=== PATIENT | male | born 1980 | race African-American/Black ===

== ENCOUNTER 2018-05-08 18:26 | Emergency (ER) | payer MEDICAID ==
[~2018-05-08] VITALS: Ht 167.6 cm; Wt 77.0 kg
[~2018-05-08 18:26] MED LIST: ERY-TAB333 MG OR; NAPROSYN500 MG PO; SEPTRA DS1 TAB OR
[2018-05-08 19:04] VITALS: BP 119/83
== END 2018-05-08 19:04 | disposition home or self-care (01) ==
LOC: ED 18:26
DX: S01.81XA Laceration without foreign body of other part of head, initial encounter (principal); W50.0XXA Accidental hit or strike by another person, initial encounter; Y93.67 Activity, basketball; Y92.830 Public park as the place of occurrence of the external cause

== ENCOUNTER 2020-09-02 09:02 | Emergency (ER) | payer OTHER ==
[~2020-09-02] VITALS: Ht 167.6 cm; Wt 86.0 kg
[2020-09-02] MEDS ORDERED: ERYTHROMYCIN O3.5 GM OS (09:59)
[2020-09-02 10:13] VITALS: BP 128/72
== END 2020-09-02 10:34 | disposition home or self-care (01) ==
LOC: ED 09:02
DX: H01.004 Unspecified blepharitis left upper eyelid (principal)

== ENCOUNTER 2020-09-15 | Emergency (ER) | payer MEDICAID ==
[~2020-09-15] MED LIST changes: +ERYTHROMYCIN O3.5 GM OS
[2020-09-15] MEDS ORDERED: LORTAB 1010 MG PO (12:21)
[2020-09-15] MEDS ORDERED: KEFLEX500 M1 PO (12:21)
== END 2020-09-15 12:46 | disposition home or self-care (01) | DRG 605 ==
PROC: 0HQNXZZ Repair Left Foot Skin, External Approach (ICD-10-PCS; principal; 2020-09-15)
DX: S91.212A Laceration without foreign body of left great toe with damage to nail, initial encounter (principal); L08.9 Local infection of the skin and subcutaneous tissue, unspecified; W20.8XXA Other cause of strike by thrown, projected or falling object, initial encounter; Y93.89 Activity, other specified; Y92.89 Other specified places as the place of occurrence of the external cause; Y99.0 Civilian activity done for income or pay

== ENCOUNTER 2021-01-09 21:44 | Emergency (ER) | payer OTHER ==
[~2021-01-09] VITALS: Ht 167.6 cm; Wt 82.0 kg
[~2021-01-09 21:44] MED LIST changes: +KEFLEX500 M1 PO; +LORTAB 1010 MG PO
[2021-01-09 22:25] LABS: HEMATOCRIT 38.8 % (39.0-50.0); HEMOGLOBIN 11.4 g/dl (14.0-18.0); IMMATURE GRANULOCYTES 0.4 % (0.0-5.0); MEAN CELL VOLUME 68.2 fL CALC (80.0-100.0); MEAN CORPUSCULAR HGB CONC 29.4 g/dL CAL (32.0-36.0); NEUT# 3.11 thou/uL (1.82-7.42); RED BLOOD COUNT 5.69 mill/uL (4.70-6.10); RED CELL DISTRI WIDTH 14.4 % (11.5-15.5)
[2021-01-09 22:38] LABS: ALBUMIN 4.3 g/dL (3.2-5.0); ALKALINE PHOSPHATASE 73 u/l (38-126); BUN 13 mg/dL (9-20); BUN/CREATININE RATIO 17 (12-20 (CALC)); CARBON DIOXIDE 28 mmol/l (22-30); CHLORIDE 94 mmol/l (95-108); CREATININE 0.7 mg/dL (0.7-1.3); GFR > 60 ML/MIN (>=60 (CALC)); GFR FOR AFR.AMER. > 60 ML/MIN (>=60 (CALC)); TOTAL PROTEIN 8.5 g/dL (6.3-8.2)
[2021-01-09 22:39] LABS: ANION GAP 13 (6-22 (CALC)); BILIRUBIN, TOTAL 1.2 mg/dL (0.0-1.4); SGOT/AST 214 u/l (17-59); SODIUM 131 mmol/l (137-146)
[2021-01-09 22:43] LABS: D-DIMER 1.59 mg/L (0.19-0.60)
[2021-01-09 22:48] LABS: ACT PARTIAL THROMBO TIME 27.8 SECONDS (20.0-32.5); INTERNATIONAL NORMALIZED RATIO 0.9 RATIO (0.7-1.3); PROTHROMBIN TIME 9.9 SECONDS (9.0-12.5)
[2021-01-09 22:49] LABS: MYOGLOBIN 29 ng/mL (0 - 121)
[2021-01-10] MEDS ORDERED: VENTOLIN HFA IN (02:02)
[2021-01-10 02:26] VITALS: BP 122/78
== END 2021-01-10 02:34 | disposition home or self-care (01) ==
LOC: ED 21:44
PROVIDERS: Family Medicine
DX: U07.1 COVID-19 (principal)
CPT/HCPCS: Q9967

== ENCOUNTER 2021-02-02 14:53 | Emergency (ER) | payer OTHER ==
[~2021-02-02] VITALS: Ht 167.6 cm; Wt 77.0 kg
[~2021-02-02 14:53] MED LIST changes: +VENTOLIN HFA IN
[2021-02-02 17:40] VITALS: BP 110/70
== END 2021-02-02 17:40 | disposition home or self-care (01) ==
LOC: ED 14:53
DX: R53.1 Weakness (principal); Z86.16 Personal history of COVID-19; Z20.822 Contact with and (suspected) exposure to COVID-19

== ENCOUNTER 2021-05-03 18:01 | Emergency (ER) | payer OTHER ==
[~2021-05-03] VITALS: Ht 167.6 cm; Wt 86.0 kg
[2021-05-03 19:22] LABS: HEMATOCRIT 39.6 % (39.0-50.0); HEMOGLOBIN 11.6 g/dl (14.0-18.0); IMMATURE GRANULOCYTES 0.7 % (0.0-5.0); MEAN CELL VOLUME 68.4 fL CALC (80.0-100.0); MEAN CORPUSCULAR HGB CONC 29.3 g/dL CAL (32.0-36.0); NEUT# 2.59 thou/uL (1.82-7.42); RED BLOOD COUNT 5.79 mill/uL (4.70-6.10); RED CELL DISTRI WIDTH 14.4 % (11.5-15.5)
[2021-05-03 19:28] LABS: URINE BILIRUBIN - DIPSTICK NEGATIVE (NEGATIVE); URINE BLOOD DIPSTICK NEGATIVE (NEGATIVE); URINE COLOR YELLOW; URINE GLUCOSE - DIPSTICK NEGATIVE (NEGATIVE); URINE KETONE NEGATIVE (NEGATIVE); URINE LEUK ESTERASE NEGATIVE (NEGATIVE); URINE PROTEIN - DIPSTICK NEGATIVE (NEG-TRACE); URINE SPECIFIC GRAVITY 1.025; URINE UROBILINOGEN - DIPSTICK 0.2 E.U./dL (0.2)
[2021-05-03 19:32] LABS: URINE NITRITE - DIPSTICK NEGATIVE (Negative)
[2021-05-03 19:43] LABS: ALBUMIN 4.6 g/dL (3.2-5.0); ALKALINE PHOSPHATASE 59 u/l (38-126); BUN 9 mg/dL (9-20); BUN/CREATININE RATIO 11 (12-20 (CALC)); CARBON DIOXIDE 28 mmol/l (22-30); CHLORIDE 104 mmol/l (95-108); CREATININE 0.8 mg/dL (0.7-1.3); GFR > 60 ML/MIN (>=60 (CALC)); GFR FOR AFR.AMER. > 60 ML/MIN (>=60 (CALC)); LIPASE 58 u/l (23-300); POTASSIUM 4.1 mmol/l (3.5-5.1); TOTAL PROTEIN 8.1 g/dL (6.3-8.2)
[2021-05-03 19:45] LABS: ANION GAP 11 (6-22 (CALC)); BILIRUBIN, TOTAL 0.5 mg/dL (0.0-1.4); SGOT/AST 29 u/l (17-59); SODIUM 139 mmol/l (137-146)
[2021-05-03 20:00] VITALS: BP 140/83
== END 2021-05-03 20:00 | disposition home or self-care (01) ==
LOC: ED 18:01
PROVIDERS: Family Medicine
DX: A08.4 Viral intestinal infection, unspecified (principal); Z20.822 Contact with and (suspected) exposure to COVID-19